=== PATIENT | male | born 1945 | race Caucasian/White ===

== ENCOUNTER 2016-12-07 06:24 | Day surgery (SDC) | payer MEDICARE, OTHER ==
[~2016-12-07 06:24] MED LIST: NACL 0.9% 1000 ML 1,000 ML IV SCH; NACL BACTERIOSTATIC INFILTRATI ONE; OMNIPAQUE (300 MG) IR ONE; PEPCID PO NR; VERSED IV NR; WATER FOR IRRIG STERILE IR ONE
[2016-12-07] MEDS ORDERED: SUBLIMAZE ONE (06:44)
[2016-12-07] MEDS ORDERED: DIPRIVAN 10 MG/ML IV ONE (06:44)
[2016-12-07] MEDS ORDERED: XYLOCAINE MPF 2% ONE (06:45)
--- NOTE | 2016-12-07 07:06 | Anesthesia Day of Surgery ---
Anesthesia Day of Surgery - Day of Surgery Patient Examined: Yes Patient H&P Reviewed: Yes Patient is NPO: Yes Beta Blockers: Yes (last PM) Cardiac Clearance: Yes
--- NOTE | 2016-12-07 07:10 | Anesthesia Consultation ---
Anesthesia Consult and Med Hx - Airway Anesthetic Teeth Evaluation: Good, Bridges ROM Head & Neck: Adequate Mental/Hyoid Distance: Adequate Mallampati Class: Class II Intubation Access Assessment: Probably Good - Pulmonary Exam CTA: Yes - Cardiac Exam Cardiac Exam: RRR - Pre-Operative Health Status ASA Pre-Surgery Classification: ASA3 Proposed Anesthetic Plan: General - Pulmonary Hx Smoking: No Hx Sleep Apnea: No (KAM PRE SCREEN HIGH RISK) - Cardiovascular System Hx Hypertension: Yes (X 5 YRS, EF 60-65%) Hx Peripheral Vascular Disease: Yes (LEGS) - Gastrointestinal Hx Gastroesophageal Reflux Disease: Yes (controlled on meds) - Endocrine Hx Renal Disease: Yes (CKD) Hx Non-Insulin Dependent Diabetes: Yes - Other Systems Hx Cancer: No Hx Obesity: Yes (BMI greater than 35) - Additional Comments Anesthesia Medical History Comments: NPO after MN. hx HTN, DM, CKD, Neuropathy, controlled GERD. cardiac clearance on chart. No prior anesthesia problems
[2016-12-07] MEDS ORDERED: ANCEF/STERILE WATER 2 GM/20 ML IV NR (08:00)
[2016-12-07] MEDS ORDERED: ZOFRAN ONE (08:10)
[2016-12-07] MEDS ORDERED: DECADRON ONE (08:10)
[2016-12-07] MEDS ORDERED: WATER FOR IRRIG STERILE IR ONE (08:27)
[2016-12-07] MEDS ORDERED: OMNIPAQUE (300 MG) IR ONE (08:39)
[2016-12-07] MEDS ORDERED: NACL 0.9% 1,000 ML IR ONE (10:24)
[2016-12-07] MEDS ORDERED: NACL 0.9% IR PRN (10:29)
[2016-12-07] MEDS ORDERED: ZOFRAN IV PRN (10:38)
[2016-12-07] MEDS: DILAUDID IV PRN ×4 (10:48→12:45)
--- NOTE | 2016-12-07 10:59 | Fluoroscopy Report ---
Retrograde pyelogram. Findings: The right pyelocalyceal system and ureter are normal. 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 The left ureter is mildly dilated. On the final image, a double-J ureteral stent is demonstrated in satisfactory position.
--- NOTE | 2016-12-07 12:45 | Short Stay Summary ---
Short Stay Documentation Date of service: 12/07/16 - History H&P: obtained from office - Allergies and Medications Current Medications: Allergies No Known Allergies Allergy (Verified 11/24/16 16:19) Home Medications Medication Instructions Recorded Confirmed Last Taken Type Allopurinol [Zyloprim] 300 mg PO QDAY 11/28/16 11/28/16 12/06/16 History Aspirin [Adult Low Dose Aspirin EC] 81 mg PO DAILY 11/28/16 12/07/16 1 Year Ago History Cetirizine HCl [ZyrTEC] 10 mg PO DAILY 11/28/16 11/28/16 12/06/16 History Esomeprazole Magnesium [NexIUM] 40 mg PO QDAY 11/28/16 11/28/16 12/06/16 History Fluticasone [Flonase] 1 spray NS QDAY 11/28/16 11/28/16 12/06/16 History Hydrochlorothiazide [HCTZ] 25 mg PO DAILY 11/28/16 11/28/16 12/06/16 History Lovastatin [Altoprev] 40 mg PO QPM 11/28/16 11/28/16 12/06/16 History Nebivolol HCl [Bystolic] 20 mg PO QDAY 11/28/16 11/28/16 12/06/16 History Niacin [Niaspan] 500 mg PO QHS 11/28/16 11/28/16 12/06/16 History Omega3,5,6,7,9 No.1/[place] Oil 1 cap PO DAILY 11/28/16 11/28/16 12/06/16 History [Complete [place] Softgel] Telmisartan [Micardis] 80 mg PO QDAY 11/28/16 11/28/16 12/06/16 History glipiZIDE [Glucotrol] 5 mg PO BID 11/28/16 11/28/16 12/06/16 History Active Medications Cefazolin Sodium (Ancef/Sterile Water 2 Gm/20 Ml) 2 gm IV PREOP NR Stop: 12/07/16 23:29 Famotidine (Pepcid) 20 mg PO PREOP NR Stop: 12/07/16 23:29 Last Admin: 12/07/16 07:09 Dose: 20 mg Hydromorphone HCl (Dilaudid) 0.5 mg IV Q10MIN PRN PRN Reason: Pain , Severe (7-10) Stop: 12/07/16 16:00 Last Admin: 12/07/16 12:25 Dose: 0.5 mg Sodium Chloride (Nacl 0.9% 1000 Ml) 1,000 mls @ 75 mls/hr IV DIRECT KECIA Last Admin: 12/07/16 06:55 Dose: 75 mls/hr Midazolam HCl (Versed) 2 mg IV PREOP NR Stop: 12/07/16 23:59 Last Admin: 12/07/16 07:09 Dose: 2 mg Ondansetron HCl (Zofran) 4 mg IV ONCE PRN PRN Reason: Nausea And Vomiting Stop: 12/07/16 16:00 Sodium Chloride (Nacl 0.9%) 1,000 ml IR PRN PRN PRN Reason: Wound Care Last Admin: 12/07/16 10:30 Dose: 1,000 ml - Brief post op/procedure progress note Date of procedure: 12/07/16 Pre-op diagnosis: Left hydroureter Post-op diagnosis: same Procedure: cysto, left rpg, rt rpg, urs, stent 6x28 Findings: left hydroureter, no def fd; high prost making urs, cysto difficult; mild lg lat /med Surgeon: MARIANA PERAZA Estimated blood loss: minimal Condition: stable - Hospital course Hospital course: or pacu home - Disposition Condition at discharge: Good Disposition: DISCHARGED TO HOME OR SELFCARE Short Stay Discharge Plan Activity: advance as tolerated Diet: advance as tolerated Follow up with: MARIANA PERAZA MD [Staff Physician] - 7 Days
[2016-12-07 13:39] VITALS: BP 148/66
--- NOTE | 2016-12-07 13:53 | Post Anesthesia Evaluation ---
- Post Anesthesia Evaluation Patient Participated: Yes Airway Patent: Yes Stable Respiratory Function: Yes Nausea/Vomiting: No Temp > 96.8F: Yes Pain Manageable: Yes Adequeate Hydration: Yes Anesthesia Complications: No
--- NOTE | 2016-12-08 08:39 | Operative Report ---
PREOPERATIVE DIAGNOSIS: Left hydroureter. POSTOPERATIVE DIAGNOSIS: Left hydroureter. PROCEDURE: Cystoscopy, bilateral RPG, left ureteroscopy, left ureteral stent placement, staged for future ureteroscopy and future stent removal. ESTIMATED BLOOD LOSS: Minimal. COMPLICATIONS: None. FINDINGS: Mild to moderate median and mild large lateral and median lobe; however, high riding prostate making difficult to pass the cystoscope as well as the ureteroscope, only able to cannulate the distal ureter, most distal just beyond the UPJ with the ureteroscope, digital prostate, no nodules. CLINICAL INDICATIONS: The patient counseled RCBA, had antibiotic SCDs. The patient was counseled on options of observation including this procedure, including possible limitation, he understood, desired to proceed. DESCRIPTION OF PROCEDURE: The patient was transferred to the OR suite in supine position, anesthesia, dorsal lithotomy, prepped and draped in standard fashion. A 22-Palest[place] scope passed, unable to easily pass beyond the prostatic urethra due to the high riding bladder neck, median bar, even passing within the prostate, had to look at the ureteral orifice at an angle due to the elevation. At this point, pancystoscopy at 30 and 70 degree lens demonstrated no tumors in the bladder that were obvious, right UO cannulated 8-Palest[place] cone-tipped catheter, contrast injected. Normal right distal ureter, proximal ureter, renal pelvis calices. The distal ureter did have maybe some active peristalsis was visualized, but no filling defects or hydronephrosis. This was repeated on the left side with approximately the distal to mid ureter having some significant dilation, but only may be minimal, but fullness tapered beyond that to the renal pelvis and calyces. At this point, filling defect was identified. At this point, a 0.055 Glidewire was passed up to left renal pelvis, rigid ureteroscope passed. We cannulate the ureteral orifice. We attempted manipulation, but just beyond passing this end of the ureter, but due to the angle in the bladder neck and probably normal narrowing of the ureter, normal anatomy that was just a narrow small ureteral orifice and a small ureter, it appeared that it might be safer at this point to not force the ureteroscope at these angles up the ureter beyond this first centimeter of entrance, it was elected to remove the ureteroscope, wire backloaded on cystoscope. A 6-Pal[place] double-J stent was passed over the wire under direct and fluoroscopic visualization. The patient was counseled preoperatively about this possibility in staging the procedure. The wire and string have been removed, proximal and distal J in good position. At this point, the bladder was drained, scope removed. There was some bleeding throughout the prostate and bladder, so it was elected to place the catheter, catheter balloon inflated to about 12 mL and flushed easily clear. Exam under anesthesia, bilateral descended testicles, prostate, no nodules. The patient was awakened and transferred to PACU in good and stable condition. PLAN: For future ureteroscopy, stent exchange, and removal. JOB# [id number] ATS/NTS
== END 2016-12-07 14:52 | disposition home or self-care (01) ==
LOC: OR 06:24
PROVIDERS: ATTEND Urology
DX: N13.4 Hydroureter (principal); I12.9 Hypertensive chronic kidney disease with stage 1 through stage 4 chronic kidney disease, or unspecified chronic kidney disease; N18.3 Chronic kidney disease, stage 3 (moderate); E11.22 Type 2 diabetes mellitus with diabetic chronic kidney disease; K21.9 Gastro-esophageal reflux disease without esophagitis; M10.9 Gout, unspecified; E78.5 Hyperlipidemia, unspecified; G47.33 Obstructive sleep apnea (adult) (pediatric); E66.9 Obesity, unspecified; Z68.35 Body mass index [BMI] 35.0-35.9, adult; Z79.899 Other long term (current) drug therapy
CPT/HCPCS: 52332; 74420; 82962; A4217; C1758; C2617; J0690; J1100; J1170; J2250; J2405; J2704; J3010; J7030; Q9967

== ENCOUNTER 2017-01-11 07:39 | Day surgery (SDC) | payer MEDICARE, OTHER ==
[2017-01-11] MEDS ORDERED: NACL BACTERIOSTATIC INFILTRATI ONE (08:27)
[2017-01-11] MEDS ORDERED: VERSED IV PRN (08:45)
--- NOTE | 2017-01-11 08:48 | Anesthesia Consultation ---
Anesthesia Consult and Med Hx - Airway Anesthetic Teeth Evaluation: Good ROM Head & Neck: Adequate Mental/Hyoid Distance: Adequate Mallampati Class: Class II Intubation Access Assessment: Possibly Difficult - Pulmonary Exam CTA: Yes - Cardiac Exam Cardiac Exam: RRR - Pre-Operative Health Status ASA Pre-Surgery Classification: ASA3 Proposed Anesthetic Plan: General (no revious anesthesia) - Pulmonary Hx Smoking: No Hx Sleep Apnea: No (KAM PRE SCREEN HIGH RISK) - Cardiovascular System Hx Hypertension: Yes (X 5 YRS, EF 60-65%; high cholesterol) Hx Peripheral Vascular Disease: Yes (LEGS) - Central Nervous System Hx Neuromuscular Disorder: No (gerd, [place] (uses hearing aids), gout) - Gastrointestinal Hx Gastroesophageal Reflux Disease: Yes (controlled on meds) - Endocrine Hx Renal Disease: Yes (CKD) Hx Non-Insulin Dependent Diabetes: Yes - Other Systems Hx Cancer: No Hx Obesity: Yes (BMI greater than 35)
--- NOTE | 2017-01-11 08:49 | Anesthesia Day of Surgery ---
Anesthesia Day of Surgery - Day of Surgery Patient Examined: Yes Patient H&P Reviewed: Yes Patient is NPO: Yes Beta Blockers: Yes
[2017-01-11] MEDS ORDERED: PEPCID PO NR (09:00)
[2017-01-11] MEDS ORDERED: NACL 0.9% 1000 ML 1,000 ML IV SCH (09:00)
--- NOTE | 2017-01-11 09:26 | Short Stay Summary ---
Short Stay Documentation Date of service: 01/11/17 - History H&P: obtained from office - Allergies and Medications Current Medications: Allergies No Known Allergies Allergy (Verified 11/24/16 16:19) Home Medications Medication Instructions Recorded Confirmed Last Taken Type Allopurinol [Zyloprim] 300 mg PO QDAY 11/28/16 12/30/16 01/11/17 06:00 History Aspirin [Adult Low Dose Aspirin EC] 81 mg PO DAILY 11/28/16 12/30/16 1 Year Ago History Cetirizine HCl [ZyrTEC] 10 mg PO DAILY 11/28/16 12/30/16 01/11/17 06:00 History Esomeprazole Magnesium [NexIUM] 40 mg PO QDAY 11/28/16 12/30/16 12/06/16 History Fluticasone [Flonase] 1 spray NS QDAY 11/28/16 12/30/16 12/06/16 History Hydrochlorothiazide [HCTZ] 25 mg PO DAILY 11/28/16 12/30/16 01/11/17 06:00 History Lovastatin [Altoprev] 40 mg PO QPM 11/28/16 12/30/16 12/06/16 History Nebivolol HCl [Bystolic] 20 mg PO QDAY 11/28/16 12/30/16 01/11/17 06:00 History Niacin [Niaspan] 500 mg PO QHS 11/28/16 12/30/16 12/06/16 History Omega3,5,6,7,9 No.1/[place] Oil 1 cap PO DAILY 11/28/16 12/30/16 01/11/17 06:00 History [Complete [place] Softgel] Telmisartan [Micardis] 80 mg PO QDAY 11/28/16 12/30/16 01/11/17 06:00 History glipiZIDE [Glucotrol] 5 mg PO BID 11/28/16 12/30/16 12/06/16 History Active Medications Cefazolin Sodium (Ancef/Sterile Water 2 Gm/20 Ml) 2 gm IV PREOP NR Famotidine (Pepcid) 20 mg PO PREOP NR Stop: 01/11/17 15:00 Last Admin: 01/11/17 09:08 Dose: 20 mg Sodium Chloride (Nacl 0.9% 1000 Ml) 1,000 mls @ 75 mls/hr IV DIRECT KECIA Last Admin: 01/11/17 08:59 Dose: 75 mls/hr Midazolam HCl (Versed) 2 mg IV PREOP PRN PRN Reason: Anxiety Stop: 01/11/17 23:59 Last Admin: 01/11/17 09:09 Dose: 2 mg - Brief post op/procedure progress note Date of procedure: 01/11/17 Pre-op diagnosis: hydroureter Post-op diagnosis: same Procedure: cysto, left urs, rpg, ureteral bx Anesthesia: GETA Findings: left distal ureter edema vs low level papillary lesion Surgeon: MARIANA PERAZA Estimated blood loss: minimal Pathology: list (bx x 3) Specimen disposition: to lab Condition: stable - Hospital course Hospital course: orpacuhome - Disposition Condition at discharge: Good Disposition: DISCHARGED TO HOME OR SELFCARE Short Stay Discharge Plan Activity: advance as tolerated Diet: advance as tolerated Follow up with: MARIANA PERAZA MD [Staff Physician] - 10 Days
[2017-01-11] MEDS ORDERED: DIPRIVAN 10 MG/ML IV ONE (09:39)
[2017-01-11] MEDS ORDERED: DILAUDID ONE (09:39)
[2017-01-11] MEDS ORDERED: XYLOCAINE MPF 2% ONE (09:39)
[2017-01-11] MEDS ORDERED: ANCEF/STERILE WATER 2 GM/20 ML IV NR (10:00)
[2017-01-11] MEDS ORDERED: WATER FOR IRRIG STERILE IR ONE ×2 (10:16→10:17)
[2017-01-11] MEDS ORDERED: OMNIPAQUE 300 MG/50 ML (CATH LAB) IV ONE (10:16)
[2017-01-11] MEDS ORDERED: ZOFRAN ONE (10:35)
[2017-01-11] MEDS ORDERED: ePHEDrine SULFATE ONE (10:59)
[2017-01-11] MEDS ORDERED: NACL 0.9% 1000 ML 1,000 ML ONE (11:30)
[2017-01-11 12:53] VITALS: BP 124/80
[2017-01-11] MEDS ORDERED: PERCOCET 5/325 PO ONE (12:55)
--- NOTE | 2017-01-11 13:26 | Post Anesthesia Evaluation ---
- Post Anesthesia Evaluation Patient Participated: Yes Airway Patent: Yes Stable Respiratory Function: Yes Nausea/Vomiting: No Temp > 96.8F: Yes Pain Manageable: Yes Adequeate Hydration: Yes Anesthesia Complications: No Block Receding Appropriately: Not Applicable Patient on Ventilator: No
--- NOTE | 2017-01-11 14:15 | Fluoroscopy Report ---
Retrograde pyelogram: Stent exchange. The initial images demonstrates a left nephroureteral stent. No calculus noted. A guidewire is present on the left side following removal of the original stent. Injection of contrast was made into the ureter. There are numerous air bubbles in the ureter compromising evaluation of the mid ureter. The intrarenal collecting systems partially opacified appears grossly normal. A stent was left in place.
--- NOTE | 2017-01-22 22:05 | Operative Report ---
PREOPERATIVE DIAGNOSIS: Left hydroureter. POSTOPERATIVE DIAGNOSES: Left hydroureter plus ureteral lesion. PROCEDURE: Cystoscopy, left ureteroscopy, left RPG, left ureteral biopsy x3. ANESTHESIA: General. FINDINGS: Left distal ureter edema versus lower lobe papillary lesion. SURGEON: Gain Schmidt MD ESTIMATED BLOOD LOSS: Minimal. PATHOLOGY: Biopsies x3 of the distal ureter. SPECIMENS: To lab. CONDITION: Stable. CLINICAL INDICATIONS: Counseled RCBA, antibiotics and SCDs. The patient was counseled. Has a history of unable to pass the scope before. Stent was passed for passive dilation and then desired to proceed with next stage. DESCRIPTION OF PROCEDURE: The patient was transferred to OR suite in supine position, anesthesia, dorsal lithotomy, prepped and draped in standard fashion. A 22-[place] scope passed, normal penile, bulbar prostatic urethra. Upon entering bladder inspection with 30 and 70-degree lens, no tumors or lesions. At this point, a 0.035 Glidewire was passed up adjacent to the wire to the distal J of the stent. Stent was grasped, pulled out and a second wire was passed up. At this point, the flexible ureteroscope was then passed up the ureter. In the distal ureter just below the bony pelvis, there was an area slightly irregular on the lateral wall, but this could be from instrument decompression, secondary edema from the stent or from other. The scope was then passed slowly up to the kidney. Contrast injected and inspected upper and lower pole calyces, renal pelvis, proximal ureter, mid ureter. No abnormality. Once again, this area was inspected several times. There was a slightly raised area which could be edema versus low level of papillary tumor. There was not erythema as we would suspect. At this point, they were unable to locate the biopsy forceps, but eventually were able to find it in the supply sterile container which was in a separate place ____. This did take quite a bit of time and significant portion of the procedure was waiting for this. At this point, the biopsy forceps was passed. Biopsy was taken of the lateral wall. This was done 3 different times due to the small size of the biopsy and wanting to get adequate and good specimen. There was minimal bleeding. The area was then inspected a few more times. There was an area that was difficult to access. The scope was then withdrawn. Wire backloaded on the cystoscope. A 6-[place] double-J stent was passed over the wire under direct and fluoroscopic visualization. When the wire and string were removed, nice proximal and distal J. The patient was awakened and transferred to the PACU in good and stable condition. [facility]# [id number] ATS/NTS
== END 2017-01-11 13:30 | disposition home or self-care (01) ==
LOC: OR 07:39
PROVIDERS: ATTEND Urology
DX: N13.4 Hydroureter (principal); K21.9 Gastro-esophageal reflux disease without esophagitis; E11.22 Type 2 diabetes mellitus with diabetic chronic kidney disease; E78.5 Hyperlipidemia, unspecified; I12.9 Hypertensive chronic kidney disease with stage 1 through stage 4 chronic kidney disease, or unspecified chronic kidney disease; N18.3 Chronic kidney disease, stage 3 (moderate); E66.9 Obesity, unspecified; Z68.35 Body mass index [BMI] 35.0-35.9, adult; Z79.899 Other long term (current) drug therapy
CPT/HCPCS: 36415; 52332; 52354; 74420; 82962; 84132; 88305; A4217; C1758; C1769; C2617; J0690; J1170; J2250; J2405; J2704; J7030; Q9967